=== PATIENT | male | born 1980 | race Two or more races ===

== ENCOUNTER 2019-04-11 16:31 | Inpatient (IN) | payer OTHER ==
[2019-04-11 18:15] VITALS: BMI 28.4
--- NOTE | 2019-04-11 21:17 | HP ---
COWS - Scale Resting Pulse: 0= [place] 80 or Below Sweatin= Chills/Flushing Restless Observation: 1= Difficult to Sit Still Pupil Size: 0= Normal to Room Light Bone or Joint Aches: 1= Mild Discomfort Runny Nose/ Eye Tearin= Runny Nose/Eyes GI Upset > 30mins: 3= Vomiting/Diarrhea Tremor Observation: 0= None Yawning Observation: 0= None Anxiety or Irritability: 2=Irritable/Anxious Goose Flesh Skin: 0=Smooth Skin COWS Score: 10 CIWA Score - Admission Criteria OASAS Guidelines: Admission for Medically Managed Detox: Requires at least one of the followin. CIWA greater than 12 2. Seizures within the past 24 hours 3. Delirium tremens within the past 24 hours 4. Hallucinations within the past 24 hours 5. Acute intervention needed for co occurring medical disorder 6. Acute intervention needed for co occurring psychiatric disorder 7. Severe withdrawal that cannot be handled at a lower level of care (continued vomiting, continued diarrhea, abnormal vital signs) requiring intravenous medication and/or fluids 8. Admitting History and Physical - Admission Chief Complaint: opioid withdrawal sx History of Present Illness: Patient is a 39 yo , domicile male with hx of intravenous heroin, intravenous cocaine dependence is here seeking inpatient detox d/t withdrawal sx when he does not use. Reports last detox in 2006 does not recall the name of the name of the facility, reports no significant period of sobriety. Reports was in [facility] at [facility] in 2014 on 80 mg but stopped attending. Denies hx of overdose, seizures or blackouts. PMHX: HTN, DM II on levemir 3,U HS HIV on Genvoya, Hep C (treated in prison 2014). Psych hx: depression non-compliant with meds. Denies SI/HI, or hx of suicide attempt. History Source: Patient Limitations to Obtaining History: No Limitations - Past Medical History Cardiovascular: Yes: HTN Endocrine: Yes: Diabetes Mellitus - Past Surgical History Past Surgical History: Yes: None Admission ROS S - HPI Allergies/Adverse Reactions: Allergies Allergy/AdvReac Type Severity Reaction Status Date / Time No Known Allergies Allergy Verified 04/11/19 18:09 Exam Limitations: No Limitations - Ebola screening Have you traveled outside of the country in the last 21 days: No (N) Have you had contact with anyone from an Ebola affected area: No Do you have a fever: No - Review of Systems Constitutional: Chills, Loss of Appetite, Changes in sleep, Unintentional Wgt. Loss (+20 lb in past two months) EENT: reports: Nose Congestion Respiratory: reports: No Symptoms reported Cardiac: reports: No Symptoms Reported GI: reports: Nausea, Poor Appetite, Poor Fluid Intake, Vomiting, Abdominal cramping : reports: No Symptoms Reported Musculoskeletal: reports: Back Pain, Joint Pain Integumentary: reports: No Symptoms Reported Neuro: reports: Headache (12/08 no visual changes) Endocrine: reports: No Symptoms Reported Hematology: reports: See HPI Psychiatric: reports: Orientated x3, Anxious Other Systems: Reviewed and Negative Patient History - Patient Medical History Hx Anemia: No Hx Asthma: No Hx Chronic Obstructive Pulmonary Disease (COPD): No Hx Cancer: No Hx Cardiac Disorders: No Hx Congestive Heart Failure: No Hx Hypertension: Yes (on lisinopril ) Hx Hypercholesterolemia: No Hx Pacemaker: No HX Cerebrovascular Accident: No Hx Seizures: No Hx Dementia: No Hx Diabetes: Yes (on levemir 30 units hs ) Hx Gastrointestinal Disorders: No Hx Liver Disease: Yes (hep C treated ) Hx Genitourinary Disorders: No Hx Sexually Transmitted Disorders: No Hx Renal Disease (ESRD): No Hx Thyroid Disease: No Hx Human Immunodeficiency Virus (HIV): Yes (dx 2014 on Genvoya ) Hx Hepatitis C: Yes (treated ) Hx Depression: Yes Hx Suicide Attempt: No Hx Bipolar Disorder: No Hx Schizophrenia: No - Patient Surgical History Past Surgical History: No - PPD History Previous Implant?: Yes (hx of PPD+ tx [facility] B6 2013) PPD to be Administered?: No - Smoking Cessation Smoking history: Current every day smoker Have you smoked in the past 12 months: Yes Aproximately how many cigarettes per day: 20 Hx Chewing Tobacco Use: No Initiated information on smoking cessation: Yes 'Breaking Loose' booklet given: 04/11/19 - Substance & Tx. History Hx Alcohol Use: Yes Hx Substance Use: Yes Substance Use Type: Alcohol, Cocaine, Heroin Hx Substance Use Treatment: Yes (Reports last detox in 2006 does not recall the name) - Substances abused Alcohol Substance route: Oral Frequency: 3-6 times per week Amount used: 1 six pack Age of first use: 10 (every two days ) Date of last use: 04/10/19 Heroin Substance route: Injection Frequency: Daily Amount used: 10 bags Age of first use: 10 Date of last use: 04/11/19 Cocaine Substance route: Injection Frequency: Daily Amount used: 1bag Age of first use: 10 Date of last use: 04/11/19 Admission Physical Exam [facility] - Vital Signs Vital Signs: Vital Signs - 24 hr 04/11/19 18:04 Temperature 98.3 F Pulse Rate 55 L Respiratory 18 Rate Blood Pressure 148/86 - Physical General Appearance: Yes: Disheveled, Thin, Anxious HEENTM: Yes: EOMI, Hearing grossly Normal, Normal ENT Inspection, Normocephalic , Normal Voice, FORREST, Pharynx Normal, Tm's normal, Rhinorrhea Respiratory: Yes: Chest Non-Tender, Lungs Clear, Normal Breath Sounds, No Respiratory Distress, No Accessory Muscle Use Neck: Yes: Within Normal Limits Breast: Yes: Breast Exam Deferred Cardiology: Yes: Regular Rhythm, Bradycardia Abdominal: Yes: Normal Bowel Sounds, Non Tender, Flat, Soft Genitourinary: Yes: Within Normal Limits Back: Yes: Normal Inspection Musculoskeletal: Yes: full range of Motion, Gait Steady, Pelvis Stable Extremities: Yes: Normal Capillary Refill, Normal Inspection, Normal Range of Motion Neurological: Yes: insole and outsole preparer II-XII NML intact, Fully Oriented, Alert, Motor Strength 5/5, Depressed Affect Integumentary: Yes: Normal Color, Warm, Track [place] (bilateral hand erythemam, mild cellultis present) Lymphatic: Yes: Within Normal Limits - Addiitonal Findings: Harm reduction reviewed, advised on MAT, follow up with Rehab post detox - Diagnostic (1) Opioid dependence with withdrawal Current Visit: Yes Status: Acute (2) Cocaine dependence, uncomplicated Current Visit: Yes Status: Acute (3) Human immunodeficiency virus [HIV] disease Current Visit: Yes Status: Chronic (4) Essential (primary) hypertension Current Visit: Yes Status: Chronic (5) Diabetes mellitus with insulin therapy Current Visit: Yes Status: Chronic (6) Nicotine dependence Current Visit: Yes Status: Chronic Qualifiers: Nicotine product type: cigarettes (7) Cellulitis Current Visit: Yes Status: Acute Qualifiers: Site of cellulitis of extremity: upper extremity Cleared for Admission [facility] - Detox or Rehab [facility] Level of Care: Medically Managed Detox Regimen/Protocol: Methadone Breathalyzer - Breathalyzer Breathalyzer: 0 Urine Drug Screen - Test Device Lot number: [id number] Expiration date: 11/28/20 - Control Is test valid?: Yes - Results Drug screen NEGATIVE: No Urine drug screen results: ASHLEIGH-Cocaine, MOP-Opiates Inpatient Rehab Admission - Rehab Decision to Admit Inpatient rehab admission?: No
[2019-04-11] MEDS ORDERED: METHOCARBAMOL 500 MG TABLET PO PRN (21:28)
[2019-04-11] MEDS ORDERED: IBUPROFEN 400 MG TABLET (FP) PO PRN (21:28)
[2019-04-11] MEDS ORDERED: METHADONE HCL 10 MG TABLET (FOR DETOX USE ONLY) PO ONE (21:28)
[2019-04-11] MEDS ORDERED: cloNIDine HCL 0.1 MG TABLET PO PRN (21:28)
[2019-04-11] MEDS ORDERED: MAGNESIUM HYDROX 2400MG/30ML ORAL SUSPENSION 30 ML CUP PO PRN (21:28)
[2019-04-11] MEDS ORDERED: ACETAMINOPHEN 325 MG TABLET (FP) PO PRN ×2 (21:28)
[2019-04-11] MEDS ORDERED: BISMUTH SUBSALICYLATE 524 MG/30 ML UD PO PRN (21:28)
[2019-04-11] MEDS ORDERED: MAGNESIUM CITRATE 300 ML BOTTLE PO PRN (21:28)
[2019-04-11] MEDS ORDERED: MENTHOL/PHENOL 1 EACH UD MM PRN (21:28)
[2019-04-11] MEDS ORDERED: NICOTINE POLACRILEX 2 MG GUM BUC PRN (21:28)
[2019-04-11] MEDS: THIAMINE HCL 100 MG TABLET (FP) PO SCH (23:41)
[2019-04-11] MEDS: BACITRACIN 15 GM TUBE TOPICAL OINTMENT TP SCH (23:47)
[2019-04-11] MEDS: PATIENT'S OWN MEDICATION (NON-FORMULARY) (Insulin Detemir [Levemir Flextouch] 30 UNIT) SQ SCH (23:59)
[2019-04-12] MEDS: CEPHALEXIN MONOHYDRATE 250 MG CAPSULE (FP) PO SCH ×5 (00:04→23:40)
[2019-04-12] MEDS ORDERED: INSULIN SLIDING SCALE (NOVOLOG) 1 VIAL SQ ONE (07:34)
[2019-04-12] MEDS: INSULIN SLIDING SCALE (NOVOLOG) 1 VIAL SQ SCH ×4 (08:27→22:25)
[2019-04-12] MEDS ORDERED: METHADONE HCL 10 MG TABLET (FOR DETOX USE ONLY) ONE (08:29)
[2019-04-12] MEDS ORDERED: METHADONE HCL 5 MG TABLET (FOR DETOX USE ONLY) ONE (08:29)
[2019-04-12] MEDS ORDERED: METHADONE (DETOX) 20 MG, METHADONE (DETOX) 5 MG PO ONE (10:00)
[2019-04-12 10:05] LABS: HEMATOCRIT 40.4 % (35.4-49); HEMOGLOBIN 13.6 GM/dL (11.7-16.9); MCH 32.8 pg (25.7-33.7); MCHC 33.7 g/dl (32.0-35.9); MEAN CELL VOLUME 97.4 fl (80-96); MEAN PLT VOLUME 11.5 fl (7.5-11.1); PLATELET COUNT 149 K/MM3 (134-434); RBC 4.15 M/mm3 (4.00-5.60); WHITE BLOOD COUNT 6.3 K/mm3 (4.0-10.0)
[2019-04-12 10:24] LABS: ALBUMIN 3.4 g/dl (3.4-5.0); BILIRUBIN,TOTAL 0.3 mg/dL (0.2-1); BLOOD UREA NITROGEN 12.1 mg/dL (7-18); CALCIUM 8.9 mg/dL (8.5-10.1); CREATININE 0.8 mg/dL (0.55-1.3); POTASSIUM 4.4 mmol/L (3.5-5.1); TOT PROT 6.8 g/dl (6.4-8.2)
[2019-04-12] MEDS: PRENATAL VITAMINS W/ FOLIC ACID TABLET (FP) PO SCH (10:34)
[2019-04-12] MEDS: NICOTINE 14 MG/24 HOURS TOPICAL PATCH TD SCH (10:34)
[2019-04-12] MEDS: LISINOPRIL 5 MG TABLET (FP) PO SCH (10:34)
[2019-04-12] MEDS: BACITRACIN 15 GM TUBE TOPICAL OINTMENT TP SCH ×2 (10:35→22:23)
--- NOTE | 2019-04-12 13:01 | EKG ---
Test Reason : Blood Pressure : / mmHG Vent. Rate : 055 BPM Atrial Rate : 055 BPM P-R Int : 152 ms QRS Dur : 104 ms QT Int : 430 ms P-R-T Axes : 022 048 036 degrees QTc Int : 411 ms SINUS BRADYCARDIA NON-SPECIFIC INTRA-VENTRICULAR CONDUCTION DELAY NO PREVIOUS ECGS AVAILABLE Confirmed by KATHERINE CONTRERAS MD ([id number]) on 04/12/2019 1:01:33 PM Referred By: GIANLUCA TOBIN Confirmed By:KATHERINE CONTRERAS MD
--- NOTE | 2019-04-12 16:42 | PN ---
S COWS - Scale Resting Pulse: 1= [place] 81-100 Sweatin= Chills/Flushing Restless Observation: 1= Difficult to Sit Still Pupil Size: 1= Pupils >than Normal Bone or Joint Aches: 1= Mild Discomfort Runny Nose/ Eye Tearin= Nasal Congestion GI Upset > 30mins: 1= Stomach Cramp Tremor Observation of Outstretched Hands: 1= Tremor [place], Not Seen Yawning Observation: 0= None Anxiety or Irritability: 1=Feels Anxious/Irritable Goose Flesh Skin: 0=Smooth Skin COWS Score: 9 S Progress Note (SOAP) Subjective: interrupted , sleep, sweats, has taken hiv or dm meds Objective: 04/12/19 16:44 Vital Signs Temperature 98.2 F 04/12/19 13:27 Pulse Rate 94 H 04/12/19 13:27 Respiratory Rate 18 04/12/19 13:27 Blood Pressure 110/71 04/12/19 13:27 O2 Sat by Pulse Oximetry (%) Laboratory Tests 04/11/19 04/12/19 04/12/19 22:09 05:18 08:00 WBC 6.3 RBC 4.15 Hgb 13.6 Hct 40.4 MCV 97.4 H MCH 32.8 MCHC 33.7 RDW 13.0 Plt Count 149 MPV 11.5 H Sodium Potassium Chloride Carbon Dioxide Anion Gap BUN Creatinine Est GFR (CKD-EPI)AfAm Est GFR (CKD-EPI)NonAf POC Glucometer 230 270 Random Glucose Calcium Total Bilirubin AST ALT Alkaline Phosphatase Total Protein Albumin RPR Titer 04/12/19 04/12/19 04/12/19 08:00 08:00 11:47 WBC RBC Hgb Hct MCV MCH MCHC RDW Plt Count MPV Sodium 139 Potassium 4.4 Chloride 108 H Carbon Dioxide 27 Anion Gap 5 L BUN 12.1 Creatinine 0.8 Est GFR (CKD-EPI)AfAm 128.60 Est GFR (CKD-EPI)NonAf 110.96 POC Glucometer 201 Random Glucose 267 H Calcium 8.9 Total Bilirubin 0.3 AST 8 L ALT 22 Alkaline Phosphatase 75 Total Protein 6.8 Albumin 3.4 RPR Titer Nonreactive 04/12/19 16:22 WBC RBC Hgb Hct MCV MCH MCHC RDW Plt Count MPV Sodium Potassium Chloride Carbon Dioxide Anion Gap BUN Creatinine Est GFR (CKD-EPI)AfAm Est GFR (CKD-EPI)NonAf POC Glucometer 219 Random Glucose Calcium Total Bilirubin AST ALT Alkaline Phosphatase Total Protein Albumin RPR Titer pt aox3 lying in bed in nad , cooperative Assessment: 04/12/19 16:45 withdrawal sx's hiv dm htn cellulitis 04/12/19 16:49 Plan: cont detox increase fluids elviteg/cob/emtri keflex lemivir lisonpril
[2019-04-12] MEDS: THIAMINE HCL 100 MG TABLET (FP) PO SCH (22:23)
[2019-04-12] MEDS: PATIENT'S OWN MEDICATION (NON-FORMULARY) (Insulin Detemir [Levemir Flextouch] 30 UNIT) SQ SCH (22:25)
[2019-04-13] MEDS: CEPHALEXIN MONOHYDRATE 250 MG CAPSULE (FP) PO SCH ×4 (05:43→23:07)
[2019-04-13] MEDS: INSULIN SLIDING SCALE (NOVOLOG) 1 VIAL SQ SCH ×4 (08:12→22:04)
[2019-04-13] MEDS ORDERED: METHADONE HCL 10 MG TABLET (FOR DETOX USE ONLY) PO ONE (10:00)
[2019-04-13] MEDS: NICOTINE 14 MG/24 HOURS TOPICAL PATCH TD SCH (10:18)
[2019-04-13] MEDS: PRENATAL VITAMINS W/ FOLIC ACID TABLET (FP) PO SCH (10:18)
[2019-04-13] MEDS: LISINOPRIL 5 MG TABLET (FP) PO SCH (10:18)
[2019-04-13] MEDS: BACITRACIN 15 GM TUBE TOPICAL OINTMENT TP SCH ×2 (11:09→22:04)
--- NOTE | 2019-04-13 12:49 | PN ---
BHS COWS - Scale Resting Pulse: 0= CT 80 or Below Sweatin= Chills/Flushing Restless Observation: 1= Difficult to Sit Still Pupil Size: 0= Normal to Room Light Bone or Joint Aches: 2= Severe Diffuse Aches Runny Nose/ Eye Tearin= None GI Upset > 30mins: 0= None Tremor Observation of Outstretched Hands: 0= None Yawning Observation: 1= 1-2x During Session Anxiety or Irritability: 2=Irritable/Anxious Goose Flesh Skin: 0=Smooth Skin COWS Score: 7 BHS Progress Note (SOAP) Subjective: c/o irritability, anxiety, sweats, and muscle aches. Objective: 04/13/19 12:50 Vital Signs 04/13/19 04/13/19 06:15 09:20 Temperature 97.9 F 100.4 F H Pulse Rate 53 L 63 Respiratory 16 16 Rate Blood Pressure 123/72 143/73 Laboratory Last Values WBC 6.3 K/mm3 (4.0-10.0) 04/12/19 08:00 RBC 4.15 M/mm3 (4.00-5.60) 04/12/19 08:00 Hgb 13.6 GM/dL (11.7-16.9) 04/12/19 08:00 Hct 40.4 % (35.4-49) 04/12/19 08:00 MCV 97.4 fl (80-96) H 04/12/19 08:00 MCH 32.8 pg (25.7-33.7) 04/12/19 08:00 MCHC 33.7 g/dl (32.0-35.9) 04/12/19 08:00 RDW 13.0 % (11.9-15.9) 04/12/19 08:00 Plt Count 149 K/MM3 (134-434) 04/12/19 08:00 MPV 11.5 fl (7.5-11.1) H 04/12/19 08:00 Sodium 139 mmol/L (136-145) 04/12/19 08:00 Potassium 4.4 mmol/L (3.5-5.1) 04/12/19 08:00 Chloride 108 mmol/L (98-107) H 04/12/19 08:00 Carbon Dioxide 27 mmol/L (21-32) 04/12/19 08:00 Anion Gap 5 MMOL/L (8-16) L 04/12/19 08:00 BUN 12.1 mg/dL (7-18) 04/12/19 08:00 Creatinine 0.8 mg/dL (0.55-1.3) 04/12/19 08:00 Est GFR (CKD-EPI)AfAm 128.60 04/12/19 08:00 Est GFR (CKD-EPI)NonAf 110.96 04/12/19 08:00 POC Glucometer 357 UNITS (80-120) 04/13/19 11:23 Random Glucose 267 mg/dL (74-106) H 04/12/19 08:00 Calcium 8.9 mg/dL (8.5-10.1) 04/12/19 08:00 Total Bilirubin 0.3 mg/dL (0.2-1) 04/12/19 08:00 AST 8 U/L (15-37) L 04/12/19 08:00 ALT 22 U/L (13-61) 04/12/19 08:00 Alkaline Phosphatase 75 U/L (45-117) 04/12/19 08:00 Total Protein 6.8 g/dl (6.4-8.2) 04/12/19 08:00 Albumin 3.4 g/dl (3.4-5.0) 04/12/19 08:00 RPR Titer Nonreactive (NONREACTIVE) 04/12/19 08:00 Labs noted. Assessment: 04/13/19 12:50 AOX3, in no acute respiratory distress. Full ROM, ambulating in the unit. Withdrawal symptoms. Plan: continue detox.
[2019-04-13] MEDS: PATIENT'S OWN MEDICATION (NON-FORMULARY) (Insulin Detemir [Levemir Flextouch] 30 UNIT) SQ SCH (22:04)
[2019-04-13] MEDS: MELATONIN 5 MG TABLETS PO PRN (22:04)
[2019-04-13] MEDS: THIAMINE HCL 100 MG TABLET (FP) PO SCH (22:04)
[2019-04-13] MEDS: MAG HYDROX/AL HYDROX/SIMETH 30 ML UNIT-DOSE CUP PO PRN (22:35)
[2019-04-14] MEDS: CEPHALEXIN MONOHYDRATE 250 MG CAPSULE (FP) PO SCH ×3 (05:54→17:25)
[2019-04-14] MEDS: INSULIN SLIDING SCALE (NOVOLOG) 1 VIAL SQ SCH ×4 (08:20→22:03)
[2019-04-14] MEDS ORDERED: METHADONE HCL 10 MG TABLET (FOR DETOX USE ONLY) ONE (09:12)
[2019-04-14] MEDS ORDERED: METHADONE HCL 5 MG TABLET (FOR DETOX USE ONLY) ONE (09:13)
[2019-04-14] MEDS: LISINOPRIL 5 MG TABLET (FP) PO SCH (09:43)
[2019-04-14] MEDS: NICOTINE 14 MG/24 HOURS TOPICAL PATCH TD SCH (09:43)
[2019-04-14] MEDS: PRENATAL VITAMINS W/ FOLIC ACID TABLET (FP) PO SCH (09:43)
[2019-04-14] MEDS: BACITRACIN 15 GM TUBE TOPICAL OINTMENT TP SCH ×2 (09:43→22:03)
[2019-04-14] MEDS ORDERED: METHADONE (DETOX) 10 MG, METHADONE (DETOX) 5 MG PO ONE (10:00)
[2019-04-14] MEDS ORDERED: INSULIN SLIDING SCALE (NOVOLOG) 1 VIAL SQ ONE (11:38)
--- NOTE | 2019-04-14 11:41 | PN ---
BHS COWS - Scale Resting Pulse: 0= [place] 80 or Below Sweatin= Chills/Flushing Restless Observation: 0= Sits Still Pupil Size: 1= Pupils >than Normal Bone or Joint Aches: 1= Mild Discomfort Runny Nose/ Eye Tearin= None GI Upset > 30mins: 1= Stomach Cramp Tremor Observation of Outstretched Hands: 1= Tremor [place], Not Seen Yawning Observation: 0= None Anxiety or Irritability: 1=Feels Anxious/Irritable Goose Flesh Skin: 0=Smooth Skin COWS Score: 6 BHS Progress Note (SOAP) Subjective: 39 years old male admitted on 04/11/19 for opiate withdrawal sx management treating with methadone detox regimen ate breakfast resting on bed comfortably discuss medication assisted treatment program and picking up narcan from pharmacy Objective: 04/14/19 11:40 Vital Signs Temperature 96.9 F L 04/14/19 09:20 Pulse Rate 63 04/14/19 09:20 Respiratory Rate 18 04/14/19 09:20 Blood Pressure 120/58 L 04/14/19 09:20 O2 Sat by Pulse Oximetry (%) Laboratory Last Values WBC 6.3 K/mm3 (4.0-10.0) 04/12/19 08:00 RBC 4.15 M/mm3 (4.00-5.60) 04/12/19 08:00 Hgb 13.6 GM/dL (11.7-16.9) 04/12/19 08:00 Hct 40.4 % (35.4-49) 04/12/19 08:00 MCV 97.4 fl (80-96) H 04/12/19 08:00 MCH 32.8 pg (25.7-33.7) 04/12/19 08:00 MCHC 33.7 g/dl (32.0-35.9) 04/12/19 08:00 RDW 13.0 % (11.9-15.9) 04/12/19 08:00 Plt Count 149 K/MM3 (134-434) 04/12/19 08:00 MPV 11.5 fl (7.5-11.1) H 04/12/19 08:00 Sodium 139 mmol/L (136-145) 04/12/19 08:00 Potassium 4.4 mmol/L (3.5-5.1) 04/12/19 08:00 Chloride 108 mmol/L (98-107) H 04/12/19 08:00 Carbon Dioxide 27 mmol/L (21-32) 04/12/19 08:00 Anion Gap 5 MMOL/L (8-16) L 04/12/19 08:00 BUN 12.1 mg/dL (7-18) 04/12/19 08:00 Creatinine 0.8 mg/dL (0.55-1.3) 04/12/19 08:00 Est GFR (CKD-EPI)AfAm 128.60 04/12/19 08:00 Est GFR (CKD-EPI)NonAf 110.96 04/12/19 08:00 POC Glucometer 303 UNITS (80-120) 04/14/19 11:18 Random Glucose 267 mg/dL (74-106) H 04/12/19 08:00 Calcium 8.9 mg/dL (8.5-10.1) 04/12/19 08:00 Total Bilirubin 0.3 mg/dL (0.2-1) 04/12/19 08:00 AST 8 U/L (15-37) L 04/12/19 08:00 ALT 22 U/L (13-61) 04/12/19 08:00 Alkaline Phosphatase 75 U/L (45-117) 04/12/19 08:00 Total Protein 6.8 g/dl (6.4-8.2) 04/12/19 08:00 Albumin 3.4 g/dl (3.4-5.0) 04/12/19 08:00 RPR Titer Nonreactive (NONREACTIVE) 04/12/19 08:00 lab noted 04/14/19 11:42 long history of hiv diabetes and IV heroin currently treated with antibiotic Assessment: 04/14/19 11:43 opiate withdrawal Plan: methadone regimen
[2019-04-14] MEDS: MAG HYDROX/AL HYDROX/SIMETH 30 ML UNIT-DOSE CUP PO PRN (19:23)
[2019-04-14] MEDS: PATIENT'S OWN MEDICATION (NON-FORMULARY) (Insulin Detemir [Levemir Flextouch] 30 UNIT) SQ SCH (22:03)
[2019-04-14] MEDS: MELATONIN 5 MG TABLETS PO PRN (22:04)
[2019-04-14] MEDS: THIAMINE HCL 100 MG TABLET (FP) PO SCH (22:05)
[2019-04-15] MEDS: CEPHALEXIN MONOHYDRATE 250 MG CAPSULE (FP) PO SCH ×4 (00:30→17:21)
[2019-04-15] MEDS: INSULIN SLIDING SCALE (NOVOLOG) 1 VIAL SQ SCH ×4 (07:31→22:12)
[2019-04-15] MEDS ORDERED: INSULIN SLIDING SCALE (NOVOLOG) 1 VIAL SQ ONE ×2 (07:33→16:35)
[2019-04-15] MEDS ORDERED: METHADONE HCL 10 MG TABLET (FOR DETOX USE ONLY) PO ONE (10:00)
--- NOTE | 2019-04-15 10:01 | PN ---
BHS COWS - Scale Resting Pulse: 0= [place] 80 or Below Sweatin= Chills/Flushing Restless Observation: 0= Sits Still Pupil Size: 0= Normal to Room Light Bone or Joint Aches: 1= Mild Discomfort Runny Nose/ Eye Tearin= None GI Upset > 30mins: 0= None Tremor Observation of Outstretched Hands: 1= Tremor [place], Not Seen Yawning Observation: 0= None Anxiety or Irritability: 1=Feels Anxious/Irritable Goose Flesh Skin: 0=Smooth Skin COWS Score: 4 BHS Progress Note (SOAP) Subjective: 39 years old male admitted on 04/11/19 for opiate withdrawal sx management treating with methadone detox regimen feeling better today less body aches slept through the night discuss medication assisted treatment program patient agrees to consider hot die picker narcan from pharmacy Objective: 04/15/19 10:00 Vital Signs Temperature 98.4 F 04/15/19 09:21 Pulse Rate 59 L 04/15/19 09:21 Respiratory Rate 18 04/15/19 09:21 Blood Pressure 119/69 04/15/19 09:21 O2 Sat by Pulse Oximetry (%) Laboratory Last Values WBC 6.3 K/mm3 (4.0-10.0) 04/12/19 08:00 RBC 4.15 M/mm3 (4.00-5.60) 04/12/19 08:00 Hgb 13.6 GM/dL (11.7-16.9) 04/12/19 08:00 Hct 40.4 % (35.4-49) 04/12/19 08:00 MCV 97.4 fl (80-96) H 04/12/19 08:00 MCH 32.8 pg (25.7-33.7) 04/12/19 08:00 MCHC 33.7 g/dl (32.0-35.9) 04/12/19 08:00 RDW 13.0 % (11.9-15.9) 04/12/19 08:00 Plt Count 149 K/MM3 (134-434) 04/12/19 08:00 MPV 11.5 fl (7.5-11.1) H 04/12/19 08:00 Sodium 139 mmol/L (136-145) 04/12/19 08:00 Potassium 4.4 mmol/L (3.5-5.1) 04/12/19 08:00 Chloride 108 mmol/L (98-107) H 04/12/19 08:00 Carbon Dioxide 27 mmol/L (21-32) 04/12/19 08:00 Anion Gap 5 MMOL/L (8-16) L 04/12/19 08:00 BUN 12.1 mg/dL (7-18) 04/12/19 08:00 Creatinine 0.8 mg/dL (0.55-1.3) 04/12/19 08:00 Est GFR (CKD-EPI)AfAm 128.60 04/12/19 08:00 Est GFR (CKD-EPI)NonAf 110.96 04/12/19 08:00 POC Glucometer 238 UNITS (80-120) 04/15/19 06:46 Random Glucose 267 mg/dL (74-106) H 04/12/19 08:00 Calcium 8.9 mg/dL (8.5-10.1) 04/12/19 08:00 Total Bilirubin 0.3 mg/dL (0.2-1) 04/12/19 08:00 AST 8 U/L (15-37) L 04/12/19 08:00 ALT 22 U/L (13-61) 04/12/19 08:00 Alkaline Phosphatase 75 U/L (45-117) 04/12/19 08:00 Total Protein 6.8 g/dl (6.4-8.2) 04/12/19 08:00 Albumin 3.4 g/dl (3.4-5.0) 04/12/19 08:00 RPR Titer Nonreactive (NONREACTIVE) 04/12/19 08:00 lab noted 04/15/19 10:01 long history of diabetes health teaching on weight loss and dietary control Assessment: 04/15/19 10:01 opiate withdrawal sx Plan: methadone regimen
[2019-04-15] MEDS: PRENATAL VITAMINS W/ FOLIC ACID TABLET (FP) PO SCH (10:37)
[2019-04-15] MEDS: LISINOPRIL 5 MG TABLET (FP) PO SCH (10:38)
[2019-04-15] MEDS: BACITRACIN 15 GM TUBE TOPICAL OINTMENT TP SCH ×2 (10:38→22:09)
[2019-04-15] MEDS: NICOTINE 14 MG/24 HOURS TOPICAL PATCH TD SCH (10:38)
[2019-04-15 11:11] LABS: URINE APPEARANCE CLEAR; URINE BILIRUBIN NEGATIVE (NEGATIVE); URINE COLOR YELLOW; URINE GLUCOSE (UA) NEGATIVE (NEGATIVE); URINE KETONE NEGATIVE (NEGATIVE); URINE LEUK ESTERASE NEGATIVE (NEGATIVE); URINE NITRITE NEGATIVE (NEGATIVE); URINE PROTEIN NEGATIVE (NEGATIVE); URINE UROBILINOGEN 0.2 mg/dL (0.2-1.0)
[2019-04-15] MEDS: PATIENT'S OWN MEDICATION (NON-FORMULARY) (Insulin Detemir [Levemir Flextouch] 30 UNIT) SQ SCH (22:11)
[2019-04-15] MEDS: MELATONIN 5 MG TABLETS PO PRN (22:15)
[2019-04-15] MEDS: THIAMINE HCL 100 MG TABLET (FP) PO SCH (22:15)
[2019-04-16] MEDS: CEPHALEXIN MONOHYDRATE 250 MG CAPSULE (FP) PO SCH ×2 (00:39→05:36)
[2019-04-16] MEDS ORDERED: METHADONE HCL 5 MG TABLET (FOR DETOX USE ONLY) PO ONE (06:00)
[2019-04-16 06:08] VITALS: BP 124/73; PULSE 57; TEMP 98.6
[2019-04-16] MEDS: INSULIN SLIDING SCALE (NOVOLOG) 1 VIAL SQ SCH (06:36)
--- NOTE | 2019-04-17 15:34 | DS ---
[facility] Detox Discharge Summary Admission Date: 04/11/19 Discharge Date: 04/17/19 - History Present History: Opioid Dependence Additional Comments: 39 years old male admitted on 04/11/19 for opiate withdrawal sx management treated with methadone detox regimen patient is scheduled for routine discharge today group underwriter does not assessed nor evaluated the patient who left the detox unit round 7 am today - Physical Exam Results Vital Signs: Vital Signs Temperature 98.6 F 04/16/19 06:07 Pulse Rate 57 L 04/16/19 06:07 Respiratory Rate 18 04/16/19 06:07 Blood Pressure 124/73 04/16/19 06:07 O2 Sat by Pulse Oximetry (%) Pertinent Admission Physical Exam Findings: opiate withdrawal Laboratory Last Values WBC 6.3 K/mm3 (4.0-10.0) 04/12/19 08:00 RBC 4.15 M/mm3 (4.00-5.60) 04/12/19 08:00 Hgb 13.6 GM/dL (11.7-16.9) 04/12/19 08:00 Hct 40.4 % (35.4-49) 04/12/19 08:00 MCV 97.4 fl (80-96) H 04/12/19 08:00 MCH 32.8 pg (25.7-33.7) 04/12/19 08:00 MCHC 33.7 g/dl (32.0-35.9) 04/12/19 08:00 RDW 13.0 % (11.9-15.9) 04/12/19 08:00 Plt Count 149 K/MM3 (134-434) 04/12/19 08:00 MPV 11.5 fl (7.5-11.1) H 04/12/19 08:00 Sodium 139 mmol/L (136-145) 04/12/19 08:00 Potassium 4.4 mmol/L (3.5-5.1) 04/12/19 08:00 Chloride 108 mmol/L (98-107) H 04/12/19 08:00 Carbon Dioxide 27 mmol/L (21-32) 04/12/19 08:00 Anion Gap 5 MMOL/L (8-16) L 04/12/19 08:00 BUN 12.1 mg/dL (7-18) 04/12/19 08:00 Creatinine 0.8 mg/dL (0.55-1.3) 04/12/19 08:00 Est GFR (CKD-EPI)AfAm 128.60 04/12/19 08:00 Est GFR (CKD-EPI)NonAf 110.96 04/12/19 08:00 POC Glucometer 188 UNITS (80-120) 04/16/19 05:39 Random Glucose 267 mg/dL (74-106) H 04/12/19 08:00 Calcium 8.9 mg/dL (8.5-10.1) 04/12/19 08:00 Total Bilirubin 0.3 mg/dL (0.2-1) 04/12/19 08:00 AST 8 U/L (15-37) L 04/12/19 08:00 ALT 22 U/L (13-61) 04/12/19 08:00 Alkaline Phosphatase 75 U/L (45-117) 04/12/19 08:00 Total Protein 6.8 g/dl (6.4-8.2) 04/12/19 08:00 Albumin 3.4 g/dl (3.4-5.0) 04/12/19 08:00 Urine Color Yellow 04/15/19 08:15 Urine Appearance Clear 04/15/19 08:15 Urine pH 6.0 (5.0-8.0) 04/15/19 08:15 Ur Specific [place] 1.017 (1.010-1.035) 04/15/19 08:15 Urine Protein Negative (NEGATIVE) 04/15/19 08:15 Urine Glucose (UA) Negative (NEGATIVE) 04/15/19 08:15 Urine Ketones Negative (NEGATIVE) 04/15/19 08:15 Urine Blood Negative (NEGATIVE) 04/15/19 08:15 Urine Nitrite Negative (NEGATIVE) 04/15/19 08:15 Urine Bilirubin Negative (NEGATIVE) 04/15/19 08:15 Urine Urobilinogen 0.2 mg/dL (0.2-1.0) 04/15/19 08:15 Ur Leukocyte Esterase Negative (NEGATIVE) 04/15/19 08:15 RPR Titer Nonreactive (NONREACTIVE) 04/12/19 08:00 lab noted long history of diabetes with glucose elevation - Treatment Hospital Course: Detox Protocol Followed, Detoxed Safely, Responded well, Discharged Condition Good, Rehab Referral Accepted Patient has Accepted a Re[facility] Referral [facility] - Medication Discharge Medications: Ambulatory Orders Elviteg/Cob/Emtri/Tenof Alafen [Genvoya Tablet] 1 each PO DAILY 04/11/19 Insulin Detemir [Levemir Flextouch] 100 unit SQ HS 04/11/19 Lisinopril 5 mg PO DAILY 04/11/19 Zolpidem Tartrate 10 mg PO HS 04/11/19 Naloxone HCl [Narcan] 4 mg NS ASDIR PRN #1 spray 04/14/19 - Diagnosis (1) Opioid dependence with withdrawal Status: Acute (2) Human immunodeficiency virus [HIV] disease Status: Chronic (3) Essential (primary) hypertension Status: Chronic (4) Diabetes mellitus with insulin therapy Status: Chronic (5) Nicotine dependence Status: Acute Qualifiers: Nicotine product type: cigarettes Substance use status: in withdrawal Qualified Code(s): F17.213 - Nicotine dependence, cigarettes, with withdrawal - AMA Did Patient Leave Against Medical Advice: No
== END 2019-04-16 07:17 | disposition home or self-care (01) | DRG 773 ==
LOC: YASAS 16:31 → Y3N 22:10
PROVIDERS: ADMIT Allergy & Immunology; ATTEND Allergy & Immunology
PROC: HZ2ZZZZ Detoxification Services for Substance Abuse Treatment (ICD-10-PCS; principal; 2019-04-11)
DX: F11.23 Opioid dependence with withdrawal (principal); F14.20 Cocaine dependence, uncomplicated; F17.213 Nicotine dependence, cigarettes, with withdrawal; I10 Essential (primary) hypertension; Z21 Asymptomatic human immunodeficiency virus [HIV] infection status; E11.9 Type 2 diabetes mellitus without complications; R00.1 Bradycardia, unspecified; L03.119 Cellulitis of unspecified part of limb; Z79.4 Long term (current) use of insulin; Z91.14 Patient's other noncompliance with medication regimen; Z86.19 Personal history of other infectious and parasitic diseases
CPT/HCPCS: 36415; 71046-TC-FY; 80053; 81003; 82962; 85027; 86593; 93005; 93010